=== PATIENT | female | born 1955 | race Caucasian/White ===

== ENCOUNTER 2017-02-20 21:36 | Emergency (ER) | payer BC, MEDICARE ==
[~2017-02-20] VITALS: Ht 175.2 cm; Wt 89.8 kg
[~2017-02-20 21:36] MED LIST: ASPIRIN81 M1 PO; ATIVAN1 MG PO; COREG12.5 MG PO; NAPROSYN375 MG PO; NORFLEX100 MG PO; OYSTER CAL 500500 MG PO; PROTONIX40 M1 PO; REQUIP1 MG PO; TRAMADOL50 MG PO; VICODIN ES 7501 TA1 PO; VICODIN ES 7501 TAB PO; ZOLOFT50 MG PO
[2017-02-20 22:30] LABS: BASO % 0.2 % (0.0-1.0); EOS % 0.1 % (1.0-4.0); HEMATOCRIT 45.2 % (37.0-47.0); HEMOGLOBIN 15.2 g/dl (12.0-16.0); IG # 0.1 10*3/uL (0.0-0.1); LYMPH # 0.7 10*3/uL (1.3-4.4); LYMPH % 5.4 % (27.0-41.0); MEAN CELL VOLUME 85.8 fl (81.0-99.0); MEAN CORPUSCULAR HGB 28.8 pg (27.0-31.0); MEAN CORPUSCULAR HGB CONC 33.6 g/dl (33.0-37.0); MEAN PLATELET VOLUME 10.4 fl (9.6-12.3); MONO # 1.1 10*3/uL (0.1-1.0); MONO % 7.9 % (3.0-9.0); NEUT # 11.8 10*3/uL (2.3-7.9); PLATELET COUNT AUTOMATED 156 10*3/uL (130-400); RED BLOOD COUNT 5.27 10*6/uL (4.10-5.10); RED CELL DISTRI WIDTH 14.1 % (0-14.5); WHITE BLOOD COUNT 13.7 10*3/uL (4.8-10.8)
[2017-02-20 22:47] LABS: BUN 10 mg/dl (7-24); CARBON DIOXIDE 23 mmol/L (21-32); CHLORIDE 101 mmol/L (98-107); EST GLOM FILT AFRICAN AMERICAN > 60 ml/min; GLUCOSE 114 mg/dL (65-99); POTASSIUM 3.5 mmol/L (3.5-5.1); SODIUM 136 mmol/L (136-145)
[2017-02-20 22:51] LABS: TROPONIN I < 0.015 ng/ml (<0.045)
[2017-02-20 23:08] LABS: BILIRUBIN NEGATIVE (NEGATIVE); BLOOD 2+ (NEGATIVE); CLARITY CLEAR (CLEAR); COLOR YELLOW (YELLOW); GLUCOSE NEGATIVE (NEGATIVE); KETONE TRACE (NEGATIVE); LEUKO ESTERASE 1+ (NEGATIVE); NITRITE NEGATIVE (NEGATIVE); PROTEIN TRACE (NEGATIVE); SPECIFIC GRAVITY <= 1.005 (1.005-1.030); UROBILINOGEN 0.2 E.U./dl (0.2-1.0)
[2017-02-20 23:14] LABS: URINE REFLEX COMMENT YES (NO)
[2017-02-20 23:15] LABS: BACTERIA 1+
== END 2017-02-20 23:38 | disposition home or self-care (01) ==
LOC: ED 21:36
PROVIDERS: Emergency Medicine
DX: B34.9 Viral infection, unspecified (principal); Z90.49 Acquired absence of other specified parts of digestive tract; Z79.82 Long term (current) use of aspirin; Z91.030 Bee allergy status; Z91.041 Radiographic dye allergy status; Z79.899 Other long term (current) drug therapy

== ENCOUNTER → 2017-05-19 | Outpatient (CLI) | payer BC ==
[2017-05-20 09:06] LABS: FOLLICLE STIMULATING HORMONE 52.9 mIU/mL (.); PROGESTERONE 004317 0.3 ng/mL (.)
== END | disposition home or self-care (01) ==
LOC: LAB 08:51
PROVIDERS: Family Medicine
DX: Z78.0 Asymptomatic menopausal state (principal)

== ENCOUNTER → 2017-08-06 | Outpatient (CLI) | payer BC | END | disposition home or self-care (01) | LOC: MAMMO 14:03 | DX: Z12.31 Encounter for screening mammogram for malignant neoplasm of breast (principal); N95.1 Menopausal and female climacteric states ==

== ENCOUNTER → 2017-08-25 | Outpatient (CLI) | payer BC | END | disposition home or self-care (01) | LOC: CARD 08-18 14:00 | DX: I51.7 Cardiomegaly (principal) ==

== ENCOUNTER → 2017-10-19 | Outpatient (CLI) | payer BC, MEDICARE ==
--- NOTE | ~2017-10-19 | HM ---
[place], [place] HOLTER MONITOR REPORT NAME: DAVID TROY UNIT #: [id number] ROOM: DOCTOR: SAMUEL CASTRO MD BIRTHDATE: [birth year] DOS: 10/22/2017 48-HOUR HOLTER MONITOR. The patient remained in sinus rhythm throughout the entire. Minimum heart rate is 50, average IS 75, maximum heart rate of 145. The patient is in sinus rhythm, isolated PVC. A 3-beat run of idioventricular rhythm is present. The patient also had a few runs of atrial tachycardia. Isolated PVCs were present and also had a brief episode of what appears to be atrial fibrillation. The fastest rate was 145 beats per minute. FINAL IMPRESSION: Abnormal Holter monitor with a few episodes of atrial fibrillation. The patient had a triplet also. No bradycardic episodes are present. The longest pause is 1.4 seconds. A few isolated PVCs are present. Short runs of atrial tachycardia and atrial fibrillation is present. The patient will be followed up. SAMUEL CASTRO MD CM:HOLTER:HOLTER MONITOR REPORT [id number] SAMUEL CASTRO MD
== END | disposition home or self-care (01) ==
LOC: CARD 08:28
DX: R55 Syncope and collapse (principal)

== ENCOUNTER → 2017-11-03 | Outpatient (CLI) | payer BC, MEDICARE ==
[~2017-11-03] MED LIST changes: +BIOTIN10000 MC1 PO; +CARAFATE1 GM PO; +EPIPEN 2-P0.3 MG/0.3 IJ; +HYDROCHLOROTH12.5 M3 PO; +LORATADINE10 M3 PO; +Motrin,Rufen800 MG PO; +TIZANIDINE HCL4 M1 PO; +TURMERIC CURCUMIN PO; +VIT D PO
--- NOTE | ~2017-11-03 | ST ---
[place], [place] EXERCISE STRESS TEST REPORT NAME: DAVID TROY UNIT #: [id number] ROOM: DOCTOR: SAMUEL CASTRO MD BIRTHDATE: [birth year] DOS: 11/03/2017 LEXISCAN PORTION OF THE LEXISCAN CARDIOLITE. Baseline cardiogram, normal sinus rhythm with nonspecific ST-T changes, 0.4 mg Lexiscan, duration of 10 seconds. With Lexiscan, no new EKG changes. The patient had no chest discomfort. Blood pressure and heart rate response was normal. FINAL IMPRESSION: No EKG changes with Lexiscan. No chest pain with Lexiscan. No dysrhythmia with Lexiscan. Blood pressure and heart rate response was normal. Nuclear images will be reported separately. SAMUEL CASTRO MD CM:STRESS:EXERCISE STRESS TEST REPORT [id number] SAMUEL CASTRO MD
== END | disposition home or self-care (01) ==
LOC: CARD 03:43
DX: I73.9 Peripheral vascular disease, unspecified (principal); I48.0 Paroxysmal atrial fibrillation; I11.9 Hypertensive heart disease without heart failure; F17.200 Nicotine dependence, unspecified, uncomplicated

== ENCOUNTER → 2018-02-16 | Outpatient (CLI) | payer BC | END | disposition home or self-care (01) | LOC: CARD 14:00 | DX: I48.0 Paroxysmal atrial fibrillation (principal) ==

== ENCOUNTER → 2018-03-15 | Outpatient (CLI) | payer BC | END | disposition home or self-care (01) | LOC: RAD 11:11 | DX: M54.5 Low back pain (principal) ==

== ENCOUNTER → 2019-06-28 | Outpatient (CLI) | payer OTHER, MEDICARE | END | disposition home or self-care (01) | LOC: RESCLI 00:16 | DX: I12.9 Hypertensive chronic kidney disease with stage 1 through stage 4 chronic kidney disease, or unspecified chronic kidney disease (principal); E11.22 Type 2 diabetes mellitus with diabetic chronic kidney disease; N18.3 Chronic kidney disease, stage 3 (moderate); M54.16 Radiculopathy, lumbar region; G89.29 Other chronic pain; F41.1 Generalized anxiety disorder; M51.26 Other intervertebral disc displacement, lumbar region; M17.9 Osteoarthritis of knee, unspecified; E55.9 Vitamin D deficiency, unspecified; E78.5 Hyperlipidemia, unspecified; K21.9 Gastro-esophageal reflux disease without esophagitis; G47.33 Obstructive sleep apnea (adult) (pediatric); G25.81 Restless legs syndrome; F39 Unspecified mood [affective] disorder; I25.10 Atherosclerotic heart disease of native coronary artery without angina pectoris; D64.9 Anemia, unspecified; Z91.09 Other allergy status, other than to drugs and biological substances; Z95.5 Presence of coronary angioplasty implant and graft; Z79.899 Other long term (current) drug therapy ==

== ENCOUNTER → 2019-08-09 | Outpatient (CLI) | payer OTHER | END | disposition home or self-care (01) | LOC: US 13:20 | DX: Z12.39 Encounter for other screening for malignant neoplasm of breast (principal); E01.0 Iodine-deficiency related diffuse (endemic) goiter; N64.59 Other signs and symptoms in breast ==

== ENCOUNTER → 2020-02-21 | Outpatient (CLI) | payer OTHER | END | disposition home or self-care (01) | LOC: RAD 12:18 | DX: Z01.818 Encounter for other preprocedural examination (principal); M17.11 Unilateral primary osteoarthritis, right knee ==

== ENCOUNTER → 2020-04-11 | Outpatient (CLI) | payer OTHER | END | disposition home or self-care (01) | LOC: RESCLI 01:11 | PROVIDERS: ATTEND Internal Medicine Nephrology | DX: M54.16 Radiculopathy, lumbar region (principal); E78.5 Hyperlipidemia, unspecified; I25.10 Atherosclerotic heart disease of native coronary artery without angina pectoris; G25.81 Restless legs syndrome; M51.26 Other intervertebral disc displacement, lumbar region; D64.9 Anemia, unspecified; K21.9 Gastro-esophageal reflux disease without esophagitis; I12.9 Hypertensive chronic kidney disease with stage 1 through stage 4 chronic kidney disease, or unspecified chronic kidney disease; E11.22 Type 2 diabetes mellitus with diabetic chronic kidney disease; N18.9 Chronic kidney disease, unspecified; E55.9 Vitamin D deficiency, unspecified; M17.11 Unilateral primary osteoarthritis, right knee; J44.9 Chronic obstructive pulmonary disease, unspecified; M79.89 Other specified soft tissue disorders; Z91.09 Other allergy status, other than to drugs and biological substances; Z79.899 Other long term (current) drug therapy; Z98.890 Other specified postprocedural states; Z95.828 Presence of other vascular implants and grafts; Z87.891 Personal history of nicotine dependence; Z91.030 Bee allergy status; Z91.041 Radiographic dye allergy status ==

== ENCOUNTER → 2020-06-20 | Outpatient (CLI) | payer OTHER ==
[~2020-06-20] MED LIST changes: -COREG12.5 MG PO; +COREG25 MG PO; +LASIX20 MG PO; +NEURONTIN300 MG PO; +ONDANSETRON4 MG SL; +ONGLYZA2.5 MG PO; +OYSTER SHELL C1 EAC3 PO; +PROVENTIL HFA6.7 GM INH; +SPIRIVA18 MCG PO; +VICO75300 PO
== END | disposition home or self-care (01) ==
LOC: RESCLI 05:10
PROVIDERS: ATTEND Internal Medicine Nephrology
DX: M51.26 Other intervertebral disc displacement, lumbar region (principal); E78.5 Hyperlipidemia, unspecified; M17.11 Unilateral primary osteoarthritis, right knee; I25.10 Atherosclerotic heart disease of native coronary artery without angina pectoris; G25.81 Restless legs syndrome; K21.9 Gastro-esophageal reflux disease without esophagitis; D64.9 Anemia, unspecified; F41.1 Generalized anxiety disorder; E55.9 Vitamin D deficiency, unspecified; E11.22 Type 2 diabetes mellitus with diabetic chronic kidney disease; J44.9 Chronic obstructive pulmonary disease, unspecified; M79.89 Other specified soft tissue disorders; G62.9 Polyneuropathy, unspecified; I10 Essential (primary) hypertension; R11.0 Nausea

== ENCOUNTER 2020-07-18 18:03 | Inpatient (IN) | payer OTHER ==
[~2020-07-18] VITALS: Ht 175.2 cm; Wt 129.0 kg
[~2020-07-18 18:03] MED LIST changes: -LASIX20 MG PO; -NEURONTIN300 MG PO; -ONDANSETRON4 MG SL; -ONGLYZA2.5 MG PO; -OYSTER SHELL C1 EAC3 PO; -PROVENTIL HFA6.7 GM INH; -SPIRIVA18 MCG PO; -VICO75300 PO
[2020-07-18 18:16] VITALS: BP 144/85
[2020-07-18 18:45] LABS: BASO % 0.2 % (0.0-1.0); HEMATOCRIT 41.6 % (37.0-47.0); LYMPH # 0.6 10*3/uL (1.3-4.4); LYMPH % 10.1 % (27.0-41.0); MEAN CELL VOLUME 75.8 fl (81.0-99.0); MEAN CORPUSCULAR HGB 22.6 pg (27.0-31.0); MEAN CORPUSCULAR HGB CONC 29.8 g/dl (33.0-37.0); MONO # 0.4 10*3/uL (0.1-1.0); MONO % 6.5 % (3.0-9.0); NEUT # 4.8 10*3/uL (2.3-7.9); NEUT % 81.8 % (47.0-73.0); PLATELET COUNT AUTOMATED 205 10*3/uL (130-400); RED BLOOD COUNT 5.49 10*6/uL (4.10-5.10); RED CELL DISTRI WIDTH 18.1 % (0-14.5); WHITE BLOOD COUNT 5.9 10*3/uL (4.8-10.8)
[2020-07-18 18:49] LABS: ACT PARTIAL THROMBO TIME 30.2 SECONDS (20.0-32.1); INTERNATIONAL NORM RATIO 1.1 (2.0-3.5)
--- NOTE | 2020-07-18 18:49 | NUR ---
PATIENT DENIES WOUNDS. A&OX4.
[2020-07-18 18:54] LABS: ALBUMIN 2.9 gm/dl (3.1-4.5); CREATININE 1.85 mg/dL (0.55-1.02); POTASSIUM 4.2 mmol/L (3.5-5.1); TOTAL PROTEIN 6.6 gm/dL (6.4-8.2)
[2020-07-18 18:57] LABS: TROPONIN I 0.185 ng/ml (<0.045)
--- NOTE | 2020-07-18 19:12 | NUR ---
REPORT FROM CAROLE ROMAN AT THIS TIME
[2020-07-18 19:30] VITALS: BP 146/66
--- NOTE | 2020-07-18 19:45 | NUR ---
PATIENT GIVES VERBAL CONSENT TO DISCUSS CARE WITH DAUGHTER IN LAW, FREDY WELL HER SISTER, BERHANE WILLARD, IF SHE WERE TO CALL IN.
[2020-07-18 20:00] VITALS: BP 149/68
[2020-07-18 20:10] LABS: ABG BASE EXCESS -2.8 mmol/L (-2.0-2.0); ARTERIAL BLOOD GAS PH 7.403 (7.35-7.45)
[2020-07-18 21:30] VITALS: BP 158/86
--- NOTE | 2020-07-18 22:10 | NUR ---
PATIENT PLACE ON BIPAP / AT 70%. HR 78 SPO2 96% ALARMS ON AND FUNCTIONAL. WILL CONTINUE TO MONITOR PATIENT.
[2020-07-19] VITALS (18 sets, daily range): BP systolic 122–187; BP diastolic 75–108
--- NOTE | 2020-07-19 00:47 | NUR ---
PT COMPLAINING OF NAUSEA. PROVIDED ZOFRAN.
[2020-07-19 03:30] LABS: BASO % 0.1 % (0.0-1.0); HEMATOCRIT 44.7 % (37.0-47.0); LYMPH # 0.6 10*3/uL (1.3-4.4); LYMPH % 5.8 % (27.0-41.0); MEAN CORPUSCULAR HGB 22.5 pg (27.0-31.0); MEAN CORPUSCULAR HGB CONC 30.4 g/dl (33.0-37.0); MEAN PLATELET VOLUME 9.6 fl (9.6-12.3); MONO # 0.4 10*3/uL (0.1-1.0); MONO % 4.1 % (3.0-9.0); NEUT # 8.8 10*3/uL (2.3-7.9); NEUT % 89.2 % (47.0-73.0); PLATELET COUNT AUTOMATED 220 10*3/uL (130-400); RED BLOOD COUNT 6.04 10*6/uL (4.10-5.10); RED CELL DISTRI WIDTH 18.6 % (0-14.5); WHITE BLOOD COUNT 9.9 10*3/uL (4.8-10.8)
--- NOTE | 2020-07-19 03:38 | NUR ---
PULSE OX 89% ON 70% PT BUMPED UP TO 80% NOW 94 ON BIPAP
--- NOTE | 2020-07-19 03:38 | NUR ---
FIO2 INCREASED TO 80%. PATIENT REMAINS ON BIPAP AT 12/6. SPO2 925 HR 87.
[2020-07-19 03:46] LABS: ALBUMIN 3.3 gm/dl (3.1-4.5); CREATININE 1.67 mg/dL (0.55-1.02); POTASSIUM 3.4 mmol/L (3.5-5.1); TOTAL PROTEIN 7.2 gm/dL (6.4-8.2)
[2020-07-19 03:47] LABS: FREE T4 1.25 ng/dl (0.76-1.46)
[2020-07-19 03:52] LABS: THYROID STIM HORMONE (HS) 2.87 uIU/ml (0.358-4.75)
--- NOTE | 2020-07-19 05:15 | NUR ---
PT IS RESTLESS AND HAS NOT BEEN ABLE TO SLEEP ALL NIGHT. DR. SEPULVEDA MADE AWARE HE IS GOING TO ORDER ATIVAN.
--- NOTE | 2020-07-19 05:50 | NUR ---
IPAP INCREASED 14 EPAP 10 FIO2 90% SPO2 90% HR 83
--- NOTE | 2020-07-19 06:01 | NUR ---
DR. SEPULVEDA MADE AWARE OF PATIENTS BIPAP CHANGES AND PULSE OX. WE ARE GOING TO GET AN ABG.
[2020-07-19 06:26] LABS: ABG BASE EXCESS -1.7 mmol/L (-2.0-2.0); ARTERIAL BLOOD GAS PH 7.361 (7.35-7.45)
--- NOTE | 2020-07-19 08:45 | NUR ---
CALLED RESIDENT AND SPOKE TO HIM FOR DR TROTTER AND LET HIM KNOW THAT PATIENT APPEARS TO BE IN A FIB WITH RVR ON EARLY HEAD START DIRECTOR. STATES THEY WILL LOOK AT THIS.
--- NOTE | 2020-07-19 09:04 | NUR ---
ECHO COMPLETED BEDSIDE ER HOLDING.
--- NOTE | 2020-07-19 10:54 | NUR ---
DR GALLEGO CALLED WITH CONSULT. HE STATED HE WOULD BE DOWN TO SEE THE PATIENT. CONSULT CALLED TO DR CASTRO. HE STATED TO BOLUS PATIENT WITH 10MG CARDIZEM AND INCREASE DRIP TO 15.
--- NOTE | 2020-07-19 11:17 | NUR ---
PATIENT TO BE PREPARED FOR INTUBATION PER VERBAL ORDER OF DR GALLEGO. MÓNICA ROMAN CALLED DR ARZOLA. DR GALLEGO STATES THAT HE WANTS ANESTHESIA TO INTUBATE HER.
--- NOTE | 2020-07-19 12:10 | NUR ---
PATIENT INTUBATED WITH A 7.5 ET TUBE AND IS 23CM AT THE LIP. PLACED ONTO MECHANICAL VENTILATOR AT AC-16 VT-500 O2-100% PEEP-18. PATIENT INTUBATED BY DOUGLAS PELAYO AND VENT SETTINGS GIVEN TO RESP BY HIM WELL.
--- NOTE | 2020-07-19 12:10 | NUR ---
PT INTUBATED BY ANESTHESIA DOUGLAS. RT ISSAC AND ADELAIDE PRESENT. PLACED ON VENT 16/500/14/100%. SAO2 55%. STAT CHEST XRAY ORDERED AND SAO2 RISING SLOWLY.
--- NOTE | 2020-07-19 12:36 | NUR ---
DOUGLAS PELAYO PLACING CENTRAL LINE AT THIS TIME ON PATIENT. THIS NURSE IN ROOM.
--- NOTE | 2020-07-19 12:53 | NUR ---
OCTAVIA PELAYO PLACING ARTERIAL LINE AT THIS TIME.
[2020-07-19 13:24] LABS: ARTERIAL BLOOD GAS PH 7.163 (7.35-7.45)
--- NOTE | 2020-07-19 14:00 | NUR ---
PT PRONED ORDERED. TOLERATING WELL.
--- NOTE | 2020-07-19 14:35 | NUR ---
DOUGLAS PELAYO GAVE IV PUSH OF NIMBEX FOR TRANSPORT OF PATIENT TO ICCU. PATIENT TAKEN TO ICCU BY THIS NURSE DOUGLAS PELAYO, TESHA IN RESP DEPARTMENT.
--- NOTE | 2020-07-19 15:00 | NUR ---
BEDSIDE REPORT GIVEN TO VICENTA ROMAN AT THIS TIME FOR PATIENT.
--- NOTE | 2020-07-19 15:00 | NUR ---
A 65, admitted to ICCU, under the services of JACLYN Flores DO with a diagnosis of RESP FAILURE/ POI FOR COVID. Chief complaint is SOB & LIPS CYANOTIC. Patient arrived via stretcher from ER. Monitor applied. Initial assessment completed. Vital signs taken and recorded. JACLYN FLORES DO notified of admission to the unit. Orders received. See assessment for past medical history, medications and allergies. Patient and/or family oriented to unit. [facility] visitation policy reviewed. Clothing/patient valuable form completed. PATIENT ARRIVED VIA CART FROM ER INTUBATED WITH ARTLINE, RIJ-MLC INTACT. DIPRIVAN, CARDIZEM, & HEPARIN INFUSING KATLIN ZUNIGA
--- NOTE | 2020-07-19 16:20 | NUR ---
ANESTHESIA HERE TO HELP PRONE PATIENT. PRONED ORDERED BY DR GALLEGO. REMAINS ON NIMBEX AND DIPROVAN ORDERED. TOLEREATING WELL. VICENTA VARGHESE RN
[2020-07-19 16:39] LABS: ABG BASE EXCESS -3.1 mmol/L (-2.0-2.0)
[2020-07-19 16:42] LABS: ARTERIAL BLOOD GAS PH 7.16 (7.35-7.45)
[2020-07-19] MEDS ORDERED: NEURONTIN300 MG PO (16:55)
[2020-07-19] MEDS ORDERED: VICO75300 PO (17:34)
[2020-07-19] MEDS ORDERED: ONDANSETRON4 MG SL (17:49)
[2020-07-19] MEDS ORDERED: ONGLYZA2.5 MG PO (17:51)
[2020-07-19] MEDS ORDERED: OYSTER SHELL C1 EAC3 PO (17:54)
[2020-07-19] MEDS ORDERED: LASIX20 MG PO (17:59)
[2020-07-19] MEDS ORDERED: SPIRIVA18 MCG PO (18:01)
[2020-07-19] MEDS ORDERED: PROVENTIL HFA6.7 GM INH (18:01)
[2020-07-20] VITALS (12 sets, daily range): BP systolic 121–186; BP diastolic 77–98
--- NOTE | 2020-07-20 05:54 | NUR ---
Patient tolerated prone position throughout the night. Patient being swam every 2hrs. No signs of distress. Vital signs stable. Monitoring.
[2020-07-20 06:12] LABS: BASO % 0.1 % (0.0-1.0); HEMATOCRIT 49.3 % (37.0-47.0); LYMPH # 0.6 10*3/uL (1.3-4.4); LYMPH % 6.9 % (27.0-41.0); MEAN CORPUSCULAR HGB 22.3 pg (27.0-31.0); MEAN PLATELET VOLUME 10.3 fl (9.6-12.3); MONO # 0.3 10*3/uL (0.1-1.0); MONO % 3.5 % (3.0-9.0); NEUT % 88.6 % (47.0-73.0); NUCLEATED RED BLOOD CELL 0.3 % (0.0-0.0); PLATELET COUNT AUTOMATED 261 10*3/uL (130-400); WHITE BLOOD COUNT 7.9 10*3/uL (4.8-10.8)
[2020-07-20 06:15] LABS: ALBUMIN 2.6 gm/dl (3.1-4.5); CREATININE 1.96 mg/dL (0.55-1.02); POTASSIUM 3.4 mmol/L (3.5-5.1)
--- NOTE | 2020-07-20 08:13 | NUR ---
PHYSICAL THERAPY Screen received pt admitted with CHF and acute respiratory failure pt was intubated on 07/19. Please consult PT if/when pt medically appropriate thank you Aileen Monae PT
--- NOTE | 2020-07-20 08:14 | NUR ---
Nursing screen received and chart reviewed. Patient admitted for CHF and acute respiratory failure. Patient was intubated on 07/19/2020. Please consult OT if/when medically appropriate for an OT eval. Thank you. Jennie Wyatt OTR/L
[2020-07-20 08:29] LABS: ABG BASE EXCESS 0.2 mmol/L (-2.0-2.0); ARTERIAL BLOOD GAS PH 7.261 (7.35-7.45)
--- NOTE | 2020-07-20 09:00 | NUR ---
Patient is currently intubated. CM will continue to follow for any discharge planning needs.
--- NOTE | 2020-07-20 09:20 | NUR ---
LABATOL 10MG IV GIVEN FOR BP 220/110. VICENTA VARGHESERN
--- NOTE | 2020-07-20 10:38 | NUR ---
SPEECH THERAPY Nursing screen received and chart review complete. Patient admitted for CHF and acute respiratory failure. Patient was intubated on 07/19/2020. Please contact if/when medically appropriate for speech evaluation. Thank you. Priyanka Allen MA [facility]
[2020-07-20 14:48] LABS: ARTERIAL BLOOD GAS PH 7.19 (7.35-7.45)
[2020-07-20 17:31] LABS: ABG BASE EXCESS -3.1 mmol/L (-2.0-2.0); ARTERIAL BLOOD GAS PH 7.209 (7.35-7.45)
--- NOTE | 2020-07-20 19:10 | NUR ---
DR GALLEGO CALLED IN. ORDERS RECEIVED TO ADVANCE ET TUBE 1.5CM. THEN PRONE PATIENT. ANESTHESIA NOTIFIED ALONG WITH RESPIRATORY. VICENTA VARGHESE RN
--- NOTE | 2020-07-20 19:15 | NUR ---
PATIENT UNPRONED WITH HELP BY ANESTHESIA. PATIENT TOLERATED WELL. POSTIONED SUPINE. ARTERIAL LINE PATIENT AND CALIBRATED. GOOD WAVE FORM. ET REMAIN SECURE. DIPROVAN AND NIMBEX INFUSING. VICENTA VARGHESE RN
--- NOTE | 2020-07-20 20:00 | NUR ---
Patient put in prone position. Patient tolerated well. Will be proned for 16hrs. Estimated time to be unproned will be 12pm 07/21/20.
--- NOTE | 2020-07-20 20:13 | NUR ---
PT PRONED. GAS IN 2 HOURS
--- NOTE | 2020-07-20 20:14 | NUR ---
Patients blood pressure reading 200/100 per artline, after being prone. Lopressor 25 was given early. Will reassess.
--- NOTE | 2020-07-20 21:40 | NUR ---
Patient blood pressure remains 180/100, contacted Dr. Welch and received new order for 50 lopressor now. Will give and reassess.
[2020-07-20 22:25] LABS: ABG BASE EXCESS -1.3 mmol/L (-2.0-2.0); ARTERIAL BLOOD GAS PH 7.257 (7.35-7.45)
[2020-07-21] VITALS (14 sets, daily range): BP systolic 140–210; BP diastolic 77–109
--- NOTE | 2020-07-21 | NUR ---
Patients blood pressure has lowered to 150's/80's after 50mg of lopressor.
--- NOTE | 2020-07-21 01:00 | NUR ---
24 HR chart check completed.
--- NOTE | 2020-07-21 02:42 | NUR ---
Patients blood pressure now, 158/80. Monitoring.
--- NOTE | 2020-07-21 03:11 | NUR ---
Patients blood pressure climbing again, 180/80's, patient does have a history of chronic pain. Morphine was given. Will monitor and reassess.
--- NOTE | 2020-07-21 03:32 | NUR ---
Patients blood pressure now at 148/86. No distress noted. Morphine effective.
--- NOTE | 2020-07-21 03:44 | NUR ---
Tylenol given for a temp of 101.1. Will monitor and reassess.
--- NOTE | 2020-07-21 04:44 | NUR ---
Patient temp is now 100.6 after tylenol.
[2020-07-21 06:08] LABS: BASO % 0.2 % (0.0-1.0); HEMATOCRIT 49.9 % (37.0-47.0); LYMPH # 0.4 10*3/uL (1.3-4.4); LYMPH % 7.8 % (27.0-41.0); MEAN CELL VOLUME 78.3 fl (81.0-99.0); MEAN CORPUSCULAR HGB 22.4 pg (27.0-31.0); MEAN CORPUSCULAR HGB CONC 28.7 g/dl (33.0-37.0); MEAN PLATELET VOLUME 9.6 fl (9.6-12.3); MONO # 0.4 10*3/uL (0.1-1.0); MONO % 6.9 % (3.0-9.0); NEUT # 4.5 10*3/uL (2.3-7.9); NEUT % 83.8 % (47.0-73.0); NUCLEATED RED BLOOD CELL 0.4 % (0.0-0.0); PLATELET COUNT AUTOMATED 308 10*3/uL (130-400); RED BLOOD COUNT 6.37 10*6/uL (4.10-5.10); RED CELL DISTRI WIDTH 19.4 % (0-14.5); WHITE BLOOD COUNT 5.4 10*3/uL (4.8-10.8)
[2020-07-21 06:20] LABS: ACT PARTIAL THROMBO TIME 40.9 SECONDS (20.0-32.1)
[2020-07-21 06:28] LABS: ALBUMIN 2.6 gm/dl (3.1-4.5); CREATININE 2.44 mg/dL (0.55-1.02); TOTAL PROTEIN 7.1 gm/dL (6.4-8.2)
--- NOTE | 2020-07-21 07:42 | NUR ---
Shift chart check completed.24 HR chart check completed.
[2020-07-21 08:53] LABS: ABG BASE EXCESS 1.7 mmol/L (-2.0-2.0); ARTERIAL BLOOD GAS PH 7.295 (7.35-7.45)
--- NOTE | 2020-07-21 08:54 | NUR ---
TYLENOL SUPPOSITORY FOR PERSISTENT TEMP >102.
--- NOTE | 2020-07-21 09:54 | NUR ---
NO CHANGE IN TEMP SINCE TYLENOL SUPPOSITORY.
--- NOTE | 2020-07-21 10:52 | NUR ---
ON ASSESSMENT PATIENT REMAINS PRONED. NIMBEX AT 2MCG/KG/MIN AND PROPOFOL WAS AT 30MCG/KG/MIN BUT INCREASED TO 40MCG/KG/MIN DUE TO PERSISTENT HYPERTENSION. HER AM MEDS GIVEN VIA OGT. GLUCERNA AT 10ML/HR. JAVED PATENT CLEAR YELLOW URINE. SOFT RESTRAINTS IN PLACE WITHOUT IMPAIRED CIRCULATION. SEE ALL APPROPRIATE INTERVENTIONS.
--- NOTE | 2020-07-21 12:56 | NUR ---
PTT 49.8. NO CHANGE IN HEPARIN INFUSION RATE. IT'S CURRENTLY RUNNING AT 1195UNITS/HR WHICH IS 9.3UNITS/KG. ANESTHESIA IS COMING TO UNPRONE PATIENT.
--- NOTE | 2020-07-21 13:19 | NUR ---
NEW CONSULT CALLED TO CHAITANYA.
--- NOTE | 2020-07-21 15:04 | NUR ---
PT WAS UNPRONED AT 1400 WITH ASSIST OF ANESTHESIA. LEFT EYE PUFFY BUT NO OPEN WOUNDS FOUND.
[2020-07-21 16:18] LABS: ABG BASE EXCESS 0.8 mmol/L (-2.0-2.0); ARTERIAL BLOOD GAS PH 7.312 (7.35-7.45)
--- NOTE | 2020-07-21 16:34 | NUR ---
SALINA ALBA AND JULIÁN HAVE ROUNDED TODAY. EMERY HENAO FROM [facility] HAS VISITED. AT 1519 PT WAS PREMEDICATED WITH 650MG TYLENOL VIA NGT, 25MG IV BENADRYL AND 40MG IV SOLUMEDROL. AT 1544 TOCILIZUMAB UP TO INFUSE OVER ONE HOUR. CXR HAS BEEN DONE. ABG'S 2HRS POST UN-PRONING HAVE BEEN DRAWN. PROPOFOL CONTINUES AT 40MCG/KG/MIN, NIMBEX AT 2MCG/KG, AND HEPARIN AT 9.3UNITS/KG. PT REPOSITIONED FOR COMFORT. SEE ALL APPROPRIATE INTERVENTIONS.
--- NOTE | 2020-07-21 17:00 | NUR ---
NO CHANGE IN TEMP FROM EALIER TYLENOL VIA NGT THAT WAS GIVEN PREMED FOR TOCILIZUMAB.
--- NOTE | 2020-07-21 17:45 | NUR ---
FIO2 DECREASED TO 50%, ABG IN 2 HOURS.
--- NOTE | 2020-07-21 17:56 | NUR ---
DR GALLEGO HAS BEEN NOTIFIED OF ABG RESULTS TWO HOURS AFTER UN-PRONING. HER FIO2 HAS BEEN DECREASED TO 50% WITH REPEAT ABG'S TO BE DONE AT 1930. PT REPOSITIONED.
[2020-07-21 19:36] LABS: ABG BASE EXCESS 1.6 mmol/L (-2.0-2.0); ARTERIAL BLOOD GAS PH 7.284 (7.35-7.45)
--- NOTE | 2020-07-21 20:00 | NUR ---
PT RESTING IN BED WITH EYES CLOSED. ENDOTUBE PATENT, TIES SECURE, VENT SETTINGS VERIFIED AND FUNCTIONING WITHOUT DIFFICULTY. OGT PATENT, PLACEMENT VERIFIED VIA AIR BOLUS AND TF PASCALE WELL. MEDICATED WITH TYLENOL PER PRN ORDER FOR T 103.2(R). RIGHT IJ MLC PATENT, DRESSING DRY AND INTACT. HEPLOCKS PATENT. IVF'S INFUSING ORDERED WITHOUT DIFFICULTY. JAVED PATENT FOR DARK BILLIE URINE. DR ANDINO NOTIFIED OF TEMP AND NEW ORDER FOR COOLING BLANKET GIVEN. ISOLATION PRECAUTIONS MAINTAINED.
--- NOTE | 2020-07-21 22:04 | NUR ---
DR GALLEGO CALLED WITH ABG RESULTS, ORDER GIVEN TO DECREASE FIO2 TO 45% WITH ABGS TO FOLLOW IN THE AM.
--- NOTE | 2020-07-21 22:30 | NUR ---
TYLENOL AND COOLING BLANKET EFFECTIVE FOR TEMP.
[2020-07-22] VITALS (21 sets, daily range): BP systolic 101–233; BP diastolic 68–126
--- NOTE | 2020-07-22 05:15 | NUR ---
MEDICATED WITH TYLENOL PER PRN ORDER FOR INCREASING TEMP 99.3.
[2020-07-22 06:06] LABS: LYMPH # 0.3 10*3/uL (1.3-4.4); LYMPH % 11.1 % (27.0-41.0); MEAN CELL VOLUME 78.7 fl (81.0-99.0); MEAN CORPUSCULAR HGB 22.6 pg (27.0-31.0); MEAN CORPUSCULAR HGB CONC 28.8 g/dl (33.0-37.0); MEAN PLATELET VOLUME 9.8 fl (9.6-12.3); MONO # 0.4 10*3/uL (0.1-1.0); MONO % 11.7 % (3.0-9.0); NEUT # 2.3 10*3/uL (2.3-7.9); NEUT % 75.9 % (47.0-73.0); NUCLEATED RED BLOOD CELL 0.7 % (0.0-0.0); PLATELET COUNT AUTOMATED 328 10*3/uL (130-400); RED CELL DISTRI WIDTH 19.1 % (0-14.5)
[2020-07-22 06:22] LABS: ALBUMIN 2.5 gm/dl (3.1-4.5); CREATININE 2.33 mg/dL (0.55-1.02); TOTAL PROTEIN 6.6 gm/dL (6.4-8.2)
--- NOTE | 2020-07-22 07:06 | NUR ---
Shift chart check completed.24 HR chart check completed.
[2020-07-22 09:08] LABS: ABG BASE EXCESS 1.6 mmol/L (-2.0-2.0); ARTERIAL BLOOD GAS PH 7.322 (7.35-7.45)
--- NOTE | 2020-07-22 11:05 | NUR ---
AT 1000 SEDATION VACATION BEGAN. PT REPOSITIONED TO HER RIGHT SIDE. WITHIN MINUTES OF SEDATION VACATION HER MONITOR SHOWED ATRIAL FIB VR >200. DR ALBA PRESENT IN ROOM. IV CARDIZEM 10MG BOLUS GIVEN WITHOUT BREAKING. MORPHINE IV GIVEN PT ALSO HYPERTENSIVE. PROPOFOL AND NIMBEX RESTARTED WITHOUT BEING ABLE TO ASSESS LEVEL OF CONSCIOUSNESS. CARDIZEM DRIP WAS STARTED AT 10MG/HR AND TITRATED UP TO 15MG/HR. HR REMAIN 170'S. HAS CALLED IN AND UPDATED ON THE EVENTS OF THIS MORNING.
--- NOTE | 2020-07-22 14:17 | NUR ---
AT 1130 AMIODARONE PROTOCOL STARTED WITH LOADING DOSE AND STARTED AT 1MG/MIN. CARDIZEM CONTINUES AT 15MG/HR. DR PACE (COVERING FOR DR CASTRO) NOTIFIED OF THE EVENTS OF THE MORNING. ORDERS RECEIVED. DR ALBA NOTIFIED OF HIS RECOMMENDATIONS.
[2020-07-22 15:26] LABS: ABG BASE EXCESS 0.7 mmol/L (-2.0-2.0); ARTERIAL BLOOD GAS PH 7.28 (7.35-7.45)
--- NOTE | 2020-07-22 15:32 | NUR ---
4 DOSES OF IV LOPRESSOR WERE GIVEN Q5M X 4. THE 4TH DOSE SLOWED PT TO <120. MONITOR SHOWING ATRIAL FLUTTER-FIB. CARDIZEM DRIP CONTINUES AT 15MG/HR. BP STAYED >100 SYSTOLIC AT ALL TIMES. TYLENOL SUPPOSITORY FOR TEMP 103.1. SHE'S ON COOLING BLANKET BUT THE BLANKET DOESN'T FEEL VERY COOL. ICE BAGS TO BILATERAL GROINS AND CHEST. [facility] DRESSING CHANGED.
--- NOTE | 2020-07-22 16:28 | NUR ---
DR ALBA UPDATED ON PT'S VS AND CURRENT DRIPS/INFUSION RATES.
--- NOTE | 2020-07-22 17:48 | NUR ---
DR GALLEGO NOTIFIED OF LATEST ABG'S. FIO2 HAS BEEN TITRATED TO 40%. AMIODARONE DECREASED TO 0.5MG/MIN PER POLICY. CARDIZEM CONTINUES AT 15MG/HR. EMERY MOROCHO HAS BEEN IN TO VISIT. PT TO RECEIVE REMDESIVIR.
--- NOTE | 2020-07-22 19:32 | NUR ---
DR GALLEGO CALLED AND ORDER TO ADVANCE ET TUBE 2CM. RESP HERE AND NOTIFIED.
--- NOTE | 2020-07-22 20:00 | NUR ---
Tube advanced from 25cm to 27cm at the lip per
--- NOTE | 2020-07-22 20:00 | NUR ---
PT RESTING IN BED WITH EYES CLOSE. ENDOTUBE PATENT, TIES SECURE, VENT SETTINGS VERIFIED AND FUNCTIONING WITHOUT DIFFICULTY. RIGHT IJ MLC AND LEFT ART LINE PATENT, DRESSINGS DRY AND INTACT. JAVED PATENT FOR DARK BILLIE URINE. NGT PATENT AND PLACMENT VERIFIED VIA AIR BOLUS. TF PASCALE WELL. IVF'S INFUSING ORDERED WITHOUT DIFFICULTY. NO S/S OF HYPO/HYPERGLYCEMIA NOTED. ISOLATION PRECAUTIONS MAINTAINED.
[2020-07-22 20:27] LABS: ABG BASE EXCESS 0.3 mmol/L (-2.0-2.0); ARTERIAL BLOOD GAS PH 7.33 (7.35-7.45)
--- NOTE | 2020-07-22 20:43 | NUR ---
MEDICATED WITH TYLENOL PER PRN ORDER FOR TEMP.
--- NOTE | 2020-07-22 20:45 | NUR ---
Kenroy called with recent ABG results. No changes. ABG in the AM.
--- NOTE | 2020-07-22 23:55 | NUR ---
PT HR CONTINUES IN THE 130-150'S. DR PACE NOTIFIED AND NEW ORDERS FOR LOPRESSOR 5MG IV X1 NOW AND REPEAT DOSE IN 10 MINUTES. DIG 0.25 IV X1 NOW AND REPEAT DOSE IN 6 HOURS.
[2020-07-23] VITALS (25 sets, daily range): BP systolic 106–196; BP diastolic 60–117
--- NOTE | 2020-07-23 01:30 | NUR ---
PT HR STILL IN 140'S. DR PACE CALLED WITH NO ANSWER.
--- NOTE | 2020-07-23 03:45 | NUR ---
HR CONTINUES IN THE 140-150'S. DR PACE CALLED AGAIN AND NEW ORDER RECEIVED. GIVE LOPRESSOR 25MG VIA NGT TID. GIVE LOPRESSOR 5MG IV X4 DOSES 10 MINUTES APART. KEEP PT NPO FOR POSSIBLE CARDIOVERSION.
[2020-07-23 06:01] LABS: ALBUMIN 2.4 gm/dl (3.1-4.5); TOTAL PROTEIN 6.3 gm/dL (6.4-8.2)
[2020-07-23 06:02] LABS: POTASSIUM 4.2 mmol/L (3.5-5.1)
[2020-07-23 06:09] LABS: BASO % 0.2 % (0.0-1.0); HEMATOCRIT 47.9 % (37.0-47.0); LYMPH # 0.4 10*3/uL (1.3-4.4); LYMPH % 8.7 % (27.0-41.0); MEAN CELL VOLUME 78.9 fl (81.0-99.0); MEAN CORPUSCULAR HGB 22.9 pg (27.0-31.0); MEAN PLATELET VOLUME 10.2 fl (9.6-12.3); MONO # 0.4 10*3/uL (0.1-1.0); MONO % 8.7 % (3.0-9.0); NEUT # 3.7 10*3/uL (2.3-7.9); NEUT % 81.3 % (47.0-73.0); PLATELET COUNT AUTOMATED 295 10*3/uL (130-400); RED BLOOD COUNT 6.07 10*6/uL (4.10-5.10); RED CELL DISTRI WIDTH 19.1 % (0-14.5); WHITE BLOOD COUNT 4.5 10*3/uL (4.8-10.8)
[2020-07-23 06:27] LABS: ACT PARTIAL THROMBO TIME 64.2 SECONDS (20.0-32.1)
--- NOTE | 2020-07-23 06:30 | NUR ---
DR CASTRO UPDATED ON PT STATUS. ORDER FOR CARDIZEM 10MG BOLUS AND CARDIZEM GTT AT 10MG/HR.
[2020-07-23 07:25] LABS: LDH 473 U/L (84-246); TRIGLYCERIDES 605 mg/dl (<150)
--- NOTE | 2020-07-23 07:30 | NUR ---
ONLY ONE DOSE OF LOPRESSOR OF THE 4 WAS GIVEN. HR IN THE 50'S.
[2020-07-23 07:47] LABS: ABG BASE EXCESS -0.4 mmol/L (-2.0-2.0); ARTERIAL BLOOD GAS PH 7.333 (7.35-7.45)
--- NOTE | 2020-07-23 09:00 | NUR ---
WOUND NURSE GREGORIA CALLED WITH NEW WOUNDS
--- NOTE | 2020-07-23 09:50 | NUR ---
DR CASTRO CALLED ABOUT EXTREMELY ELEVATED HR & BP AND ORDERS RECEIVED
--- NOTE | 2020-07-23 14:41 | NUR ---
SPOKE WITH DR CASTRO AGAIN ABOUT HR & BP - NEW ORDERS RECEVIED & GIVEN. CARDIZEM DRIP AT 15mg/hr PER REQUEST OF DR CASTRO. AMIODARONE DRIP AT 0.5.. HEPARIN DRIP AT 9.3 U/KG/HR.. NIMBEX AT 1MG .. KETAMINE AT 4..JAVED PATENT FOR STRAW URINE AFTER ALBUMIN & LASIX GIVEN..ARTLINE & RIJ-MLC REMAIN SECURE & [PATENT..OGT WITH TUBE FEEDING AT 30CC/HR
[2020-07-23 14:48] LABS: ARTERIAL BLOOD GAS PH 7.348 (7.35-7.45)
--- NOTE | 2020-07-23 15:28 | NUR ---
DR CABRERA SHOWN WOUND CARE RECOMMENDATIONS & ORDERS REQUESTED
[2020-07-23 18:05] LABS: ABG BASE EXCESS 2.2 mmol/L (-2.0-2.0); ARTERIAL BLOOD GAS PH 7.31 (7.35-7.45)
--- NOTE | 2020-07-23 18:21 | NUR ---
DR GALLEGO CALLED WITH ABG RESULTS - ORDERS FOR ABG IN 2 HOURS ON SAME SETTINGS
[2020-07-23 20:23] LABS: ABG BASE EXCESS 0.8 mmol/L (-2.0-2.0); ARTERIAL BLOOD GAS PH 7.296 (7.35-7.45)
--- NOTE | 2020-07-23 21:00 | NUR ---
called with repeat ABG results. No changes at this time. ABG in the AM.
--- NOTE | 2020-07-23 21:05 | NUR ---
Patients heart rate remains 150-160, and blood pressure 190/116. Lopressor iv 5mg given, morphine given. Will monitor and reassess.
--- NOTE | 2020-07-23 21:10 | NUR ---
Patients heart rate is down to 116-120, and blood pressure is 152/80. Monitoring.
[2020-07-24] VITALS (25 sets, daily range): BP systolic 138–192; BP diastolic 77–106
--- NOTE | 2020-07-24 00:30 | NUR ---
Patient has a temp of 102.8, tylenol given. Will monitor and reassess.
--- NOTE | 2020-07-24 02:23 | NUR ---
Patients heart rate in the 160's. Blood pressure 164/88. Lopressor given. Will monitor and reassess.
--- NOTE | 2020-07-24 02:52 | NUR ---
Patients heart rate 128-140. Temp remains elevated. Place on cooling blanket.
--- NOTE | 2020-07-24 03:40 | NUR ---
R Tylenol was given for a temp of 103.9, cooling blanket turned down. Will monitor.
--- NOTE | 2020-07-24 04:00 | NUR ---
Patients temp still increasing, another cooling blanket was placed. Attempted to place ice bags, but no ice available on the floor. Monitoring.
[2020-07-24 06:07] LABS: HEMATOCRIT 52.2 % (37.0-47.0); MEAN CELL VOLUME 79.6 fl (81.0-99.0); MEAN CORPUSCULAR HGB 22.7 pg (27.0-31.0); MEAN CORPUSCULAR HGB CONC 28.5 g/dl (33.0-37.0); MEAN PLATELET VOLUME 10.8 fl (9.6-12.3); NUCLEATED RED BLOOD CELL 0.4 % (0.0-0.0); PLATELET COUNT AUTOMATED 379 10*3/uL (130-400); RED BLOOD COUNT 6.56 10*6/uL (4.10-5.10); RED CELL DISTRI WIDTH 19.3 % (0-14.5); WHITE BLOOD COUNT 7.1 10*3/uL (4.8-10.8)
[2020-07-24 06:14] LABS: ALBUMIN 2.8 gm/dl (3.1-4.5)
[2020-07-24 06:19] LABS: CREATININE 2.07 mg/dL (0.55-1.02); TOTAL PROTEIN 6.3 gm/dL (6.4-8.2)
--- NOTE | 2020-07-24 06:45 | NUR ---
Patients temp 103.7 after 2nd cooling blanket placed.
[2020-07-24 07:07] LABS: POTASSIUM 5.3 mmol/L (3.5-5.1)
[2020-07-24 07:17] LABS: ATYPICAL LYMPHS 3 % (0-0); MICROCYTOSIS SLIGHT; PLATELET SUFFICIENCY NORMAL (NORMAL); POLYCHROMASIA SLIGHT; TOTAL CELLS COUNTED 100 #CELLS
--- NOTE | 2020-07-24 07:46 | NUR ---
Shift chart check completed.24 HR chart check completed.
--- NOTE | 2020-07-24 08:05 | NUR ---
OT NOTE Nursing screenr received and chart reviewed. Patient admitted with COVID-19 and acute respiratory failure with hypoxia. Patient was intubated on 07/19/2020. Please consult OT when patient is medically appropriate for an OT evaluation. Thank you. Jennie Wyatt, OTR/L
--- NOTE | 2020-07-24 08:30 | NUR ---
Patient is in COVID isolation precautions and intubated. CM will continue to follow for any discharge planning needs.
[2020-07-24 09:24] LABS: BILIRUBIN Negative (Negative); BLOOD Trace-Lysed (Negative); CLARITY Clear (Clear); COLOR Yellow (Yellow); GLUCOSE 3+ (Negative); KETONE Negative (Negative); LEUKO ESTERASE Negative (Negative); NITRITE Negative (Negative); UROBILINOGEN 0.2 E.U./dl (0.0-1.0)
[2020-07-24 09:40] LABS: ARTERIAL BLOOD GAS PH 7.274 (7.35-7.45)
[2020-07-24 10:27] LABS: BACTERIA 2+; RBC 16-20 rbc/hpf (0-2)
--- NOTE | 2020-07-24 11:10 | NUR ---
ON ASSESSMENT PT DEEPLY SEDATED ON KETAMINE AND NIMBEX. THESE WERE TURNED OFF AT 0815. THE ONLY RESPONSE NOTED IS ELEVATED HR AND RR. RIJ MLC INTACT. LB ARTERIAL LINE INTACT. NGT INTACT WITH GLUCERNA AT 30/HR. AMIODOARONE CONTINUES AT 0.5MG/MIN AND CARDIZEM AT 20MG/HR. HEPARIN DRIP CONTINUES AT 1195 UNITS/HR WITH A THERAPEUTIC PTT THIS AM. JAVED PATENT YELLOW URINE. A CXR WAS DONE. BLOOD CULTURES OBTAINED (ONE PERIPHERAL AND ONE FROM ARTERIAL LINE) AND URINE SENT FOR REFLEX TO CULTURE. HYPOTHERMIA BLANKET UNDER AND ON TOP OF PATIENT. PT HAD ROUTINE ASA VIA NGT AND A DOSE OF TYLENOL VIA THE NGT ALSO. TEMP HAS SLOWLY COME DOWN TO 100. DR CASTRO VISITED EARLIER. DR ALBA HAS VISITED. DR GALLEGO HAS VISITED. SEE ALL APPROPRIATE INTERVENTIONS.
--- NOTE | 2020-07-24 12:43 | NUR ---
SPEECH THERAPY Nusing screen received and chart review complete. Patient currently admitted to ICU with COVID-19 and acute respiratory failure. Patient is currently intubated (07/19) and is currently sedated. Speech therapy available for consult when medically appropriate. Thank you. Priyanka Allen MA CCC-MATHS TUTOR
--- NOTE | 2020-07-24 14:46 | NUR ---
WHEN DR GALLEGO WAS HERE EARLIER A ONE TIME DOSE OF ZEMURON 60MG WAS GIVEN TO ASSESS PLATEAU PRESSURE. DR GALLEGO PRESENT IN THE ROOM. TV INCREASED TO 525 AND PEEP TO 10. PT HAD EPISTAXIS FROM LEFT NARE. HE HAD ME TURN OFF HEPARIN DRIP AND IS TO REMAIN OFF FOR 6 HOURS. MAY RESUME IF EPISTAXIX DOES NOT RECUR. PT WAS REPOSITIONED TO HER BACK AND LATER THERE WAS SOME BLOOD FROM RT NARE BUT ON SUCTIONING IT CLEARED. WILL CONTINUE TO MONITOR. COOLING BLANKET TO MONITOR MODE FOR TEMP <100. KETAMINE WAS RESTARTED AT 1MCG/KG.
[2020-07-24 15:02] LABS: ABG BASE EXCESS -1.6 mmol/L (-2.0-2.0); ARTERIAL BLOOD GAS PH 7.324 (7.35-7.45)
[2020-07-24 15:58] LABS: CREATININE 1.68 mg/dL (0.55-1.02)
[2020-07-24 15:59] LABS: POTASSIUM 4.2 mmol/L (3.5-5.1)
--- NOTE | 2020-07-24 19:26 | NUR ---
PT HAD A COMPLETE BED BATH AFTER INCONTINENT FOR LARGE AMOUNT MUSHY GREEN/BROWN BM. NO FURTHER BLEEDING FROM NOSE SO HEPARIN DRIP RESUMED WTHOUT ANY BOLUS PER ORDER DR GALLEGO. SHE'S BEEN IN NSR WITH PAC'S LATER PART OF AFTERNOON. CARDIZEM DRIP HAS BEEN DECREASED TO 10MG/HR.
[2020-07-25] VITALS (24 sets, daily range): BP systolic 130–189; BP diastolic 62–97
--- NOTE | 2020-07-25 03:23 | NUR ---
Patients blood pressure reading 188/99, patient showing no signs of distress. Morphine given to try and decrease blood pressure. Will monitor and reassess.
[2020-07-25 05:57] LABS: ALBUMIN 2.6 gm/dl (3.1-4.5); CREATININE 1.63 mg/dL (0.55-1.02); POTASSIUM 4.8 mmol/L (3.5-5.1); TOTAL PROTEIN 5.8 gm/dL (6.4-8.2)
[2020-07-25 06:04] LABS: HEMATOCRIT 52.4 % (37.0-47.0); MEAN CORPUSCULAR HGB 22.6 pg (27.0-31.0); MEAN CORPUSCULAR HGB CONC 28.6 g/dl (33.0-37.0); MEAN PLATELET VOLUME 10.8 fl (9.6-12.3); NUCLEATED RED BLOOD CELL 0.2 % (0.0-0.0); PLATELET COUNT AUTOMATED 311 10*3/uL (130-400); RED BLOOD COUNT 6.63 10*6/uL (4.10-5.10); RED CELL DISTRI WIDTH 19.6 % (0-14.5); WHITE BLOOD COUNT 12.8 10*3/uL (4.8-10.8)
[2020-07-25 07:46] LABS: BURR CELLS MODERATE; MICROCYTOSIS SLIGHT; PLATELET SUFFICIENCY NORMAL (NORMAL); TOTAL CELLS COUNTED 100 #CELLS
[2020-07-25 09:08] LABS: ABG BASE EXCESS 0.1 mmol/L (-2.0-2.0); ARTERIAL BLOOD GAS PH 7.349 (7.35-7.45)
--- NOTE | 2020-07-25 09:14 | NUR ---
Moderatley sedated. Cough and gag present. no spontaneous opening of eyes. Oral mucosa moist w/ dried blood around mouth and nose IE: previous nose blee. Yaunkar suction for moderate cristiano clotted blood from oropharnyx. NGT and ETT secure. MLC /RIJ, A-line to LR . IV to RH dislodged and removed. HL to LH dressing changed. Repositioned to left. Sedation to off .
[2020-07-25 10:39] LABS: ABG BASE EXCESS -0.4 mmol/L (-2.0-2.0); ARTERIAL BLOOD GAS PH 7.348 (7.35-7.45)
--- NOTE | 2020-07-25 10:52 | NUR ---
Dr. Jasmine in to mayoradha.
--- NOTE | 2020-07-25 12:37 | NUR ---
Nutritional Support Services Note: Dx of acute respiratory failure, CHF, HTN, DM, afib, CAD. Pt is currently on a vent. OGT feedings of Glucerna 1.0 at 40cc/hr. Ht. 5'9 Wt.263# IBW 130-150. TF is providing pt with 960cc/960cal daily. Will follow as needed. Lucinda Tanner Rdn Ld
--- NOTE | 2020-07-25 13:39 | NUR ---
1230 sEDATION RESUMED. W/O PT. REGAINING CONCIOUSNESS . Gasping respiratins present. Duoderm placed to chin in anticipation of proning scheduled for 2 pm. Pupils 6mm and sluggish to react.
--- NOTE | 2020-07-25 14:42 | NUR ---
PT. PRONED AT 1430. ABG IN 2 HOURS.
[2020-07-25 16:41] LABS: ABG BASE EXCESS -2.5 mmol/L (-2.0-2.0); ARTERIAL BLOOD GAS PH 7.272 (7.35-7.45)
--- NOTE | 2020-07-25 20:55 | NUR ---
2000 REMAINS IN PRONE POSITION. ET SECURE TO VENT. PULSE OX 96%. OGT INTACT AND CLAMPED AT PRESENT TIME WHILE PRONED. ORAL CARE DONE. RIJ MLC INTACT. NIMBEX, KETAMINE AND CARDIZEM GTTS CONT. HEPARIN GTT ON HOLD UNTIL PT IS UNPRONED. ISOLATION CONT. LR ART LINE INTACT. ZEROED AND CALIBRATED WITH GOOD WAVEFORM AND DYNAMIC RESPONSE. JAEVD PATENT AND DRAINING CLEAR YELLOW URINE. INSULIN GTT CONT. Q1H BEDSIDE BLOOD SUGARS CONT.
--- NOTE | 2020-07-25 21:57 | NUR ---
TYLENOL GIVEN OGT FOR ELEVATED TEMP, WILL MONITOR.
--- NOTE | 2020-07-25 22:57 | NUR ---
EARLIER TYLENOL NOT EFFECTIVE YET. WILL CONT TO MONITOR.
[2020-07-26] VITALS (18 sets, daily range): BP systolic 97–134; BP diastolic 70–90
--- NOTE | 2020-07-26 02:29 | NUR ---
RECTAL TEMP NOW 101.4. Q1HOUR BED SIDE BLOOD SUGAR CHECKS CONT. REMAINS IN PRONE POSITION.
[2020-07-26 04:22] LABS: HEMATOCRIT 53.7 % (37.0-47.0); MEAN CELL VOLUME 80.5 fl (81.0-99.0); MEAN CORPUSCULAR HGB 22.6 pg (27.0-31.0); MEAN CORPUSCULAR HGB CONC 28.1 g/dl (33.0-37.0); MEAN PLATELET VOLUME 11.3 fl (9.6-12.3); NUCLEATED RED BLOOD CELL 0.2 % (0.0-0.0); PLATELET COUNT AUTOMATED 364 10*3/uL (130-400); RED BLOOD COUNT 6.67 10*6/uL (4.10-5.10); RED CELL DISTRI WIDTH 20.3 % (0-14.5); WHITE BLOOD COUNT 17.7 10*3/uL (4.8-10.8)
[2020-07-26 04:37] LABS: ALBUMIN 2.6 gm/dl (3.1-4.5); CREATININE 2.16 mg/dL (0.55-1.02); POTASSIUM 5.6 mmol/L (3.5-5.1); TOTAL PROTEIN 5.8 gm/dL (6.4-8.2)
[2020-07-26 04:39] LABS: ATYPICAL LYMPHS 3 % (0-0); TOTAL CELLS COUNTED 100 #CELLS
[2020-07-26 04:40] LABS: PLATELET SUFFICIENCY NORMAL (NORMAL)
--- NOTE | 2020-07-26 04:55 | NUR ---
HR ELEVATED AND AFIB/FLUTTER. PO LOPRESSOR GIVEN EARLY VIA OGT. CARDIZEM GTT INCREASED FOR THIS. WILL CONT TO MONITOR.
--- NOTE | 2020-07-26 05:19 | NUR ---
IS IN NSR IN THE 70-80'S NOW WITH PERIODS A-FIB/FLUTTER. WILL CONT TO MONITOR.
--- NOTE | 2020-07-26 06:11 | NUR ---
MONITOR NSR NOW IN THE 70'S. REMAINS PRONED. ET SECURE TO VENT. PULSE OX 97%. ART LINE IS VERY POSITIONAL. INSULIN GTT CONT AT 3UNITS. Q1H BEDSIDE BLOOD SUGAR CHECKS CONT. JAVED PATENT. CONDITION GUARDED.
--- NOTE | 2020-07-26 06:53 | NUR ---
0630 PT UNPRONED WITH ANESTHESIA HERE. ALL LINES SECURE. ART LINE L BRACHIAL SITE IS VERY POSITIONAL. OCTAVIA FROM ANESTHESA AWARE AND SAID HE WILL REPLACE TODAY IF NEEDED. DUODERM REMOVED FROM CHIN AND CHEEKS. FACE CLEANED. WILL REPLACE. HEPARIN GTT RESUMED.
--- NOTE | 2020-07-26 09:00 | NUR ---
Patient is in COVID isolation precautions and intubated. CM will continue to follow for any discharge planning needs.
[2020-07-26 09:13] LABS: ARTERIAL BLOOD GAS PH 7.304 (7.35-7.45)
--- NOTE | 2020-07-26 12:43 | NUR ---
0800 Full assessemnt. WUnresponsive. no cough or gag , no response to sternal rub, No corneal reflex. Nimbex and Ketamine to off. Dried blood noted around nose and mouth, cleansed. Tube tamer changed per RT Prudencio. Duoderms removed from face , revealing 2cm x 2cm skin sheer to rt. cheek bone. NGT secure and tube feed resumed. ETT secure. RIJ/ MLC all lines patent. Hourly glucoses , titrating up. A-line wave form dampened. 0900 Anesthesia Brayden BULK STATION OPERATOR in and A-line was replaced. LR a-line placed and L bracheal a-Line was dc'd . pressure to site x 3 min. 1100 Repositioned to left. Oral care given. Mouth movement noted w/ this oral care. No spontaneous opening of eyes , No facial grimace w/ painful stimuli. Pupils slightly unequal w/ rt. @ 2mm and lt @ 4mm. sluggish response. ' Dr. Samaniego in to oma. Dr. Velásquez aware of husbands wish to speak w/ a physician. requested phone to be place to pt's ear so he could speak to her. Post call pt. remained unresponsive. Repositioned to left. Oral care given. Dr. Jasmine in to oma.
--- NOTE | 2020-07-26 15:32 | NUR ---
Juve Alexander AND dR Brownlee IN TO [facility].
--- NOTE | 2020-07-26 17:03 | NUR ---
rEPOSITIONED TO BACK. Yawns w/ oral care, cough and gag intact. No spontaneous opening of eyes. oral care moist w/ blood tinged sputum.
--- NOTE | 2020-07-26 20:21 | NUR ---
1948 RESTING IN BED IN SUPINE POSITION. HOB ELEVATED. SIDE RAILS UP X'S 2. WRIST RESTRAINTS REMAIN OFF. NO RESPONSE TO VERBAL OR PAINFUL STIMULI NOTED. OGT INTACT. TF MAINTAINED. FREE H20 GIVEN ORDERED. PLACEMENT CONFIRMED WITH AIR BOLUS/AUSCULTATION. RIJ INTACT WITH ALL PORTS PATENT. INSULIN GTT AND HEPARIN GTTS CONT. Q2H BEDSIDE BLOOD SUGARS CONT. L RADIAL ART LINE INTACT. ZEROED AND CALIBRATED WITH GOOD WAVEFORM AND DYNAMIC RESPONSE. JAVED PATENT AND DRAINING CLEAR YELLOW URINE. RECTAL TEMP IS 100.6 COOLING BLANKET INTACT. ISOLATION MAINTAINED.
[2020-07-27] VITALS: BP 135/74
--- NOTE | 2020-07-27 00:37 | NUR ---
0000 COMPLETE BED BATH GIVEN AND LINENS CHANGED. REPOSITIONED. MONITOR BACK TO NSR. WILL CONT TO MONITOR. REMAINS UNRESPONSIVE. PUPILS EQUAL, BUT REMAINS UNREACTIVE.
--- NOTE | 2020-07-27 01:52 | NUR ---
0152 TYLENOL VIA OGT FOR ELEVATED TEMP. WILL MONITOR
--- NOTE | 2020-07-27 02:52 | NUR ---
0252 RECTAL TEMP IS 100.2.
[2020-07-27 04:00] VITALS: BP 108/79
[2020-07-27 05:57] LABS: HEMATOCRIT 50.5 % (37.0-47.0); MEAN CELL VOLUME 81.8 fl (81.0-99.0); MEAN CORPUSCULAR HGB 22.7 pg (27.0-31.0); MEAN CORPUSCULAR HGB CONC 27.7 g/dl (33.0-37.0); MEAN PLATELET VOLUME 11.7 fl (9.6-12.3); NUCLEATED RED BLOOD CELL 0.1 % (0.0-0.0); PLATELET COUNT AUTOMATED 266 10*3/uL (130-400); RED BLOOD COUNT 6.17 10*6/uL (4.10-5.10); RED CELL DISTRI WIDTH 20.9 % (0-14.5); WHITE BLOOD COUNT 26.9 10*3/uL (4.8-10.8)
[2020-07-27 06:07] LABS: ALBUMIN 2.5 gm/dl (3.1-4.5); CREATININE 2.11 mg/dL (0.55-1.02); POTASSIUM 5.8 mmol/L (3.5-5.1); TOTAL PROTEIN 5.4 gm/dL (6.4-8.2)
--- NOTE | 2020-07-27 06:19 | NUR ---
REMAINS UNRESPONSIVE TO VERBAL OR PAINFUL STIMULI. SEDATION REMAINS OFF, DRSG CHANGED TO RIJ MLC. PERIODS OF AFIB/FLUTTER CONT WITH A VR HIGH 140.PULSE OX 94% HEPARIN AND INSULIN GTTS CONT. JAVED PATENT. CONDITION GUARDED.
[2020-07-27 06:40] LABS: ACT PARTIAL THROMBO TIME 109.9 SECONDS (20.0-32.1)
[2020-07-27 08:00] VITALS: BP 112/70
[2020-07-27 08:21] LABS: OVALOCYTES MODERATE; PLATELET SUFFICIENCY NORMAL (NORMAL); TOTAL CELLS COUNTED 100 #CELLS
--- NOTE | 2020-07-27 08:30 | NUR ---
DR CABRERA MADE AWARE OF WOUND TO RT CHIN AND WILL GET RECOMMENDATIONS FROM WOUND CARE.
[2020-07-27 08:55] LABS: ABG BASE EXCESS -2.8 mmol/L (-2.0-2.0); ARTERIAL BLOOD GAS PH 7.304 (7.35-7.45)
--- NOTE | 2020-07-27 09:00 | NUR ---
Patient is in COVID isolation precautions and intubated. CM will continue to follow for any discharge planning needs.
--- NOTE | 2020-07-27 09:37 | NUR ---
GREGORIA ESPINAL HERE AND STAGED WOUND TO RT CHIN FFOUND AT 0800 WITH AM ASSESSMENT..
--- NOTE | 2020-07-27 11:50 | NUR ---
SPEECH THERAPY Nusing screen and chart review complete. Patient remains intubated at this time with dx of COVID-19. Speech therapy is avaiable for consult when medically approppriate. Thank you. Priyanka Allen MA [facility]-AUTOMOTIVE MECHANICAL ENGINEER
[2020-07-27 12:00] VITALS: BP 115/70
--- NOTE | 2020-07-27 12:17 | NUR ---
DR SERGO HENRIQUEZ
--- NOTE | 2020-07-27 13:29 | NUR ---
BACK FROM RADIOLOGY - DR GALLEGO STILL PRESENT AND CASE DISCUSSED
[2020-07-27 16:00] VITALS: BP 113/55
--- NOTE | 2020-07-27 16:00 | NUR ---
ETT PULLED BACK TO 26 AT LIP
[2020-07-27 17:05] LABS: ABG BASE EXCESS -3.7 mmol/L (-2.0-2.0); ARTERIAL BLOOD GAS PH 7.288 (7.35-7.45)
[2020-07-27 18:30] LABS: HEMATOCRIT 46.3 % (37.0-47.0); MEAN CELL VOLUME 81.7 fl (81.0-99.0); MEAN CORPUSCULAR HGB 22.9 pg (27.0-31.0); MEAN CORPUSCULAR HGB CONC 28.1 g/dl (33.0-37.0); MEAN PLATELET VOLUME 11.1 fl (9.6-12.3); NUCLEATED RED BLOOD CELL 0.1 % (0.0-0.0); PLATELET COUNT AUTOMATED 267 10*3/uL (130-400); RED BLOOD COUNT 5.67 10*6/uL (4.10-5.10); RED CELL DISTRI WIDTH 21.2 % (0-14.5)
[2020-07-27 18:42] LABS: ALBUMIN 2.3 gm/dl (3.1-4.5); CREATININE 2.2 mg/dL (0.55-1.02); TOTAL PROTEIN 5.1 gm/dL (6.4-8.2)
[2020-07-27 18:49] LABS: PLATELET SUFFICIENCY NORMAL (NORMAL); TOTAL CELLS COUNTED 100 #CELLS
[2020-07-27 18:50] LABS: OVALOCYTES FEW
[2020-07-27 19:07] VITALS: BP 95/60
--- NOTE | 2020-07-27 22:00 | NUR ---
ASSESSMENT DONE - PUPILS EQUAL AND SLOW TO REACT..+ GAG REFLEX..NO BABINSKI.. ETT SECURE W/ 26 AT LIP, OGT SECURE W/ PLACEMENT CHECKED BY AIR BOLUS THEN FEEDING AT 40 CC/HR.. RIJ-MLC & LEFT ARTLINE SECURE & PATENT.. TEMP REMAINS ELEVATED - TYLENOL VIA OGT & COOLING BLANKET IN USE - DULCOLAX SUPPOSITORY GIVEN FOR NO BM SINCE THURSDAY
[2020-07-28] VITALS: BP 105/72
--- NOTE | 2020-07-28 03:23 | NUR ---
TYLENOL GIVEN VIA OG TUBE FOR ELEVATED TEMPERATURE.
[2020-07-28 04:00] VITALS: BP 101/59
[2020-07-28 04:56] LABS: HEMATOCRIT 42.6 % (37.0-47.0); MEAN CELL VOLUME 81.3 fl (81.0-99.0); MEAN CORPUSCULAR HGB 22.9 pg (27.0-31.0); MEAN CORPUSCULAR HGB CONC 28.2 g/dl (33.0-37.0); MEAN PLATELET VOLUME 11.6 fl (9.6-12.3); NUCLEATED RED BLOOD CELL 0.1 % (0.0-0.0); PLATELET COUNT AUTOMATED 214 10*3/uL (130-400); RED BLOOD COUNT 5.24 10*6/uL (4.10-5.10); RED CELL DISTRI WIDTH 20.7 % (0-14.5); WHITE BLOOD COUNT 26.7 10*3/uL (4.8-10.8)
[2020-07-28 05:16] LABS: ALBUMIN 2.1 gm/dl (3.1-4.5); CREATININE 2.21 mg/dL (0.55-1.02); POTASSIUM 5.6 mmol/L (3.5-5.1); TOTAL PROTEIN 4.7 gm/dL (6.4-8.2)
[2020-07-28 05:30] LABS: ACT PARTIAL THROMBO TIME 46.1 SECONDS (20.0-32.1)
[2020-07-28 05:43] LABS: OVALOCYTES FEW; PLATELET SUFFICIENCY NORMAL (NORMAL); TOTAL CELLS COUNTED 100 #CELLS
[2020-07-28 05:44] LABS: BURR CELLS FEW; ROULEAUX SLIGHT
--- NOTE | 2020-07-28 05:50 | NUR ---
RN IN TO SEE PATIENT, PATIENT HAS AGAIN HAD A NOSE BLEED. BLOOD IS ALL DOWN THE LEFT SIDE OF FACE AND HAS SOAKED THE PILLOW CASE AND THE SHEET ON THE BED. HEPARIN GTT WAS STOPPED AT THIS TIME. BLOOD WAS CLEANED FROM ALL THESE AREAS. BLOOD WAS ALSO SUCTIONED FROM THE ET TUBE WELL. DR ABEBE CALLED AND MADE AWARE THAT HEPARIN GTT WAS STOPPED PER THE RN'S JUDGEMENT. STATES THAT THIS IS FINE AND TO MONITOR THE BLEEDING.
--- NOTE | 2020-07-28 06:51 | NUR ---
FOB COLLECTED AND SENT AT THIS TIME. PATIENT HAS LARGE BM APPROXIMATELY 20 MINUTES AGO, VERY DARK TARRY LIKE
--- NOTE | 2020-07-28 07:40 | NUR ---
FiO2 INCREASED TO 50% AFTER O2 SATS STAYING MID 80'S ON 45% SATS UP TO 91% ON 50%
[2020-07-28 08:00] VITALS: BP 114/69
--- NOTE | 2020-07-28 08:30 | NUR ---
DR PACE HERE AND CASE DISCUSSED - MULTIPLE MED CHANGES ORDERED
--- NOTE | 2020-07-28 09:00 | NUR ---
DIG IV GIVEN FOR ELEVATED HEART RATE AND TYLENOL GIVEN FOR ELEVATED TEMP DESPITE COOLING BLANKET IN USE..ETT SECURE W/ 26 AT LIP. NGT SECURE & PLACEMENT CHECKED WITH AIR BOLUS THEN FEEDING RESUMED @ 50 cc/hr AND FREE WATER GIVEN. LEFT ARTLINE SECURE & PATENT WITH GOOD HEMODYNAMIC RESPONSE AFTER ZERD'D AND CALIBRATED. ABD SOFT WITH NORMOACTIVE BS..TEGAN SECURE & PATENT. HEEL RAISERS & SCD ON. HYDROGUARD TO BILAT FEET. INSULIN DRIP INCREASED TO 11 cc/hr. HEPARIN DRIP & D5W INFUSING.
[2020-07-28 09:12] LABS: ARTERIAL BLOOD GAS PH 7.33 (7.35-7.45)
--- NOTE | 2020-07-28 09:45 | NUR ---
A FLUTTER VIA MONITOR RATE 118-130..
[2020-07-28 12:00] VITALS: BP 95/65
--- NOTE | 2020-07-28 14:54 | NUR ---
DR GALLEGO ROUNDED - CASE DISCUSSED
--- NOTE | 2020-07-28 15:52 | NUR ---
RECEIVED A CALL FROM [facility] - THEY HAVE ACCEPTED HER AND DR SCOTT WILL BE THE ACCEPTING PHYSICIAN.. THEY NEED PREAUTH PRIOR TO TRANSFER - AMBULANCE OPERATIONS SUPERVISOR NOTIFIED.. HERE TO SEE PATIENT
[2020-07-28 16:00] VITALS: BP 120/77
--- NOTE | 2020-07-28 16:31 | NUR ---
JUST LEFT AND TOOK BELONGINGS INCLUDING DENTURES AND HE SAID HE HAS THE CELL PHONE ALREADY..
--- NOTE | 2020-07-28 17:01 | NUR ---
PER [facility] THEY ARE CANCELLING THE TRANSFER PER MED CALL [employer] THEY CAN NOT TAKE HER AT THIS TIME.. FEEL FREE TO CALL AGAIN AND REQUEST TRANSFER IF CONDITION WORSENS. PER DR MARTINES [facility] REFUSED TRANSFER ALREADY - NURSE REQUESTED DR TROTTER BE NOTIFIED IN CASE HE WANTS [facility] OR SOME PLACE ELSE CALLED.
--- NOTE | 2020-07-28 17:04 | NUR ---
GLOBAL COMPENSATION MANAGER AIMEE REED NOTIFIED OF TRANSFER CANCELLED
--- NOTE | 2020-07-28 17:07 | NUR ---
NOTIFIED OF NO TRANSFER AND ALSO THAT THE INSURANCE WAS SAYING THEY WEREN'T SURE THEY WOULD EVEN COVER IT IT IS OUT OF STATE
[2020-07-28 20:00] VITALS: BP 111/63
--- NOTE | 2020-07-28 20:07 | NUR ---
PATIENT MEDICATED WITH TYLENOL VIA OG TUBE FOR ELEVATED TEMPERATURE OF 13.2 PER CONTINUOUS RECTAL PROBE. COOLING BLANKET WAS APPLIED TO PATIENT AND ALL UNNECCESSARY BLANKET AND PILLOWS WERE REMOVED. RN WILL MONITOR FOR EFFECTIVENESS OF MEDICATION.
--- NOTE | 2020-07-28 22:05 | NUR ---
RN IN TO ASSESS PATIENT, PATIENT HAS BLOOD ALL DOWN THE LEFT SIDE OF THE FACE AND ON CHEST. BLOOD HAD SATURATED THE PILLOWCASE AND THE SHEET UNDERNEATH. HEPARIN GTT STOPPED AT THIS TIME, PER THIS RN'S NURSING JUDGEMENT. BLOOD WAS CLEANED UP. LARGE AMOUNT OF BRIGHT RED BLLOD WERE SUCTIONED ORALLY FROM PATIENT AND BLOOD WAS ALSO SUCTIONED FROM THE ET TUBE. DR ABEBE WAS CALLED AND MADE AWARE OF THIS, STATES THAT THIS IS FINE BUT TO MONITOR THE BLEEDING
[2020-07-29] VITALS: BP 103/79
[2020-07-29 04:00] VITALS: BP 121/70
--- NOTE | 2020-07-29 04:35 | NUR ---
PATIENT BATHED AT THIS TIME. TOLERATED WELL. BLEEDING CONTINUED AT THE NOSE AND COPIOUS AMOUNTS OF BLOOD WERE SUCTIONED OUT OF THE MOUTH WELL. PULSE OXIMETRY REMAINS 89-90% RN WILL CONTINUE TO MONITOR
--- NOTE | 2020-07-29 05:30 | NUR ---
MORNING BLOODWORK COLLECTED AND SENT AT THIS TIME,. PATIENT TOLERATED WELL. AGAIN WAS SUCTION ORALLY FOR LARGE AMOUNTS OF BRIGHT RED BLOOD. HEPARIN REMAINS OFF.
--- NOTE | 2020-07-29 06:05 | NUR ---
DR VIEIRA MADE AWARE OF PRELIMINARY POSITIVE BLOOD CULTURES, YI RECIEVED
[2020-07-29 06:25] LABS: HEMATOCRIT 44.1 % (37.0-47.0); MEAN CELL VOLUME 82.1 fl (81.0-99.0); MEAN CORPUSCULAR HGB 22.9 pg (27.0-31.0); MEAN CORPUSCULAR HGB CONC 27.9 g/dl (33.0-37.0); MEAN PLATELET VOLUME 12.9 fl (9.6-12.3); NUCLEATED RED BLOOD CELL 0.2 10*3/uL (0.0-0.0); NUCLEATED RED BLOOD CELL 0.6 % (0.0-0.0); PLATELET COUNT AUTOMATED 278 10*3/uL (130-400); RED BLOOD COUNT 5.37 10*6/uL (4.10-5.10); RED CELL DISTRI WIDTH 20.6 % (0-14.5); WHITE BLOOD COUNT 34.3 10*3/uL (4.8-10.8)
[2020-07-29 06:35] LABS: ALBUMIN 2.2 gm/dl (3.1-4.5); CREATININE 2.58 mg/dL (0.55-1.02); POTASSIUM 5.8 mmol/L (3.5-5.1)
[2020-07-29 06:49] LABS: TOTAL PROTEIN 4.9 gm/dL (6.4-8.2)
[2020-07-29 07:27] LABS: TOTAL CELLS COUNTED 100 #CELLS
[2020-07-29 07:28] LABS: BURR CELLS FEW; OVALOCYTES FEW; PLATELET SUFFICIENCY NORMAL (NORMAL)
--- NOTE | 2020-07-29 07:52 | NUR ---
Shift chart check completed.24 HR chart check completed.
[2020-07-29 08:00] VITALS: BP 90/73
[2020-07-29 09:22] LABS: ABG BASE EXCESS -4.7 mmol/L (-2.0-2.0); ARTERIAL BLOOD GAS PH 7.257 (7.35-7.45)
[2020-07-29 12:00] VITALS: BP 105/73
--- NOTE | 2020-07-29 12:12 | NUR ---
DR MORGAN MADE AWARE OF LABS. ORDERS RECEIVED. UPDATED VIA PHONE.
[2020-07-29 15:29] LABS: CREATININE 2.91 mg/dL (0.55-1.02)
[2020-07-29 15:39] LABS: POTASSIUM 6.5 mmol/L (3.5-5.1)
[2020-07-29 16:00] VITALS: BP 104/61
--- NOTE | 2020-07-29 16:11 | NUR ---
DR MORGAN NOTIFIED OF 1500 BMP, INCLUDING CRITICAL VALUES OF BUN 128 AND K+ OF 6.5. ORDERS WERE RECEIVED.
[2020-07-29 17:00] LABS: ARTERIAL BLOOD GAS PH 7.22 (7.35-7.45)
[2020-07-29 17:17] LABS: ABG BASE EXCESS -7.7 mmol/L (-2.0-2.0)
[2020-07-29 20:00] VITALS: BP 110/39
[2020-07-29 21:15] LABS: CREATININE 3.42 mg/dL (0.55-1.02)
[2020-07-29 21:39] LABS: POTASSIUM 6.4 mmol/L (3.5-5.1)
[2020-07-30] VITALS (57 sets, daily range): BP systolic 62–169; BP diastolic 37–96
--- NOTE | 2020-07-30 00:10 | NUR ---
PT BS 457. DR CABRERA NOTIFIED AND ORDER FOR ANOTHER 20U OF REGULAR INSULIN TO BE GIVEN NOW. ALSO UPDATED ON DR MORGAN ORDERS AND HIS SAYING SHE NEEDS TO HAVE A DIALYSIS CATH IN THE MORNING. DR CABRERA SAID TO PUT ORDER FOR DIALYSIS CATH IN UNDER DR MORGAN AND TO CONSULT DR CHATTERJEE IN AM.
[2020-07-30 03:11] LABS: ABG BASE EXCESS -7.8 mmol/L (-2.0-2.0); ARTERIAL BLOOD GAS PH 7.198 (7.35-7.45)
--- NOTE | 2020-07-30 04:30 | NUR ---
DR GALLEGO NOTIFIED AND UPDATED ON PT STATUS. NEW ORDERS FOR 1 AMP BICARB, D5W WITH 2 AMPS IF BICARB AT 50CC/HR, INCREASE O2 TO 60%, START KETAMINE GTT, START LEVOPHED GTT, START VASOPRESSIN GTT IF NEEDED, START EPI GTT IF NEEDED.
[2020-07-30 06:09] LABS: ALBUMIN 1.7 gm/dl (3.1-4.5); CREATININE 4.18 mg/dL (0.55-1.02); TOTAL PROTEIN 4.3 gm/dL (6.4-8.2)
[2020-07-30 06:14] LABS: POTASSIUM 5.4 mmol/L (3.5-5.1)
--- NOTE | 2020-07-30 06:35 | NUR ---
DR CHATTERJEE NOTIFIED OF CONSULT FOR DIALYSIS PORT.
[2020-07-30 06:39] LABS: HEMATOCRIT 35.8 % (37.0-47.0); MEAN CELL VOLUME 83.1 fl (81.0-99.0); MEAN CORPUSCULAR HGB 23.4 pg (27.0-31.0); MEAN CORPUSCULAR HGB CONC 28.2 g/dl (33.0-37.0); NUCLEATED RED BLOOD CELL 0.4 10*3/uL (0.0-0.0); NUCLEATED RED BLOOD CELL 1.5 % (0.0-0.0); RED BLOOD COUNT 4.31 10*6/uL (4.10-5.10); RED CELL DISTRI WIDTH 20.1 % (0-14.5); WHITE BLOOD COUNT 27.1 10*3/uL (4.8-10.8)
[2020-07-30 06:42] LABS: PLATELET COUNT AUTOMATED 178 10*3/uL (130-400)
--- NOTE | 2020-07-30 06:57 | NUR ---
DR CABRERA NOTIFIED OF REFLEX 427. ORDER TO GIVE REGULAR INSULIN 20 UNITS SQ NOW. ALSO NOTIFIED OF CALCIUM 6.9 AND K+ 5.4.
[2020-07-30 07:03] LABS: OVALOCYTES FEW; PLATELET SUFFICIENCY NORMAL (NORMAL); TOTAL CELLS COUNTED 100 #CELLS
[2020-07-30 07:04] LABS: POLYCHROMASIA SLIGHT
[2020-07-30 08:22] LABS: ARTERIAL BLOOD GAS PH 7.212 (7.35-7.45)
[2020-07-30 08:24] LABS: ABG BASE EXCESS -6.2 mmol/L (-2.0-2.0)
--- NOTE | 2020-07-30 09:00 | NUR ---
Patient is in COVID isolation precautions and intubated. CM will follow for any discharge planning needs.
--- NOTE | 2020-07-30 09:58 | NUR ---
SPOKE WITH THE AND HE STATED THAT HE WILL TELL DR TROTTER IT IS OK TO PLACE THE DIALYSIS CATHETER AND THAT IT IS OK TO REPLACE THE MLC. HE WANTS US TO DO WHATEVER IS NECESSARY
--- NOTE | 2020-07-30 11:06 | NUR ---
Nursing screen received and chart reviewed. Patient admitted for COVID-19 and she is currently intubated. Patient is not appropriate for OT at this time due to being intubated. Please send OT orders when patient is extubated and if medically appropriate for an OT evaluation. Thank you. Jennie Wyatt, OTR/L
--- NOTE | 2020-07-30 11:20 | NUR ---
PHYSICAL THERAPY Nursing screen received and chart reviewed. Patient continues to be mechanically intubated. Recommend skilled PT services when medically appropriate to participate. Thank you. Lisha Blackburn,PT,DPT
--- NOTE | 2020-07-30 12:00 | NUR ---
0930 RECTAL JAVED BAG CHANGED 1100 LEVOPHED DRIP INFUSING 1115 RT FEMORAL DIALYSIS CATHETER INSERTED AT BEDSIDE BY DR CHATTERJEE 1130 J-[facility] INSERTED 1149 DR GALLEGO CHANGED TO PRESSURE SUPPORT ORDER TO RESTRAT INSULIN DRIP
[2020-07-30 14:44] LABS: ABG BASE EXCESS -7.5 mmol/L (-2.0-2.0)
[2020-07-30 14:46] LABS: ARTERIAL BLOOD GAS PH 7.145 (7.35-7.45)
--- NOTE | 2020-07-30 17:00 | NUR ---
1300 LIJ-MLC REMOVED PER DR TROTTER.. 1400 NEW LIJ-MLC PLACED BY DR TROTTER AND RT ARTLINE PLACED BY ANESTHESIA & DR TROTTER AFTER LEFT WRIST ART REMOVED..LEVOPHED MAXED OUT.. [address] LARA 1600 LEVOPHED MAXED OUT/ VASOPRESSIN MAXED OUT - EPI ORDERED 1700 SBP 60'S.. HR AFL 166 TEMP 104.4 SCLERA EDEMA RT EYE. NO NEURO
--- NOTE | 2020-07-30 17:28 | NUR ---
DR TROTTER HERE AND SPOKE WITH THE FAMILY WHO ARE PRESENT - CONDITION SERIOUS - DECISION TO MAKE PATIENT [facility] CALLED.. AWAITING RETURN CALL - CALLED THE 2 SONS TO COME IN
--- NOTE | 2020-07-30 17:54 | NUR ---
INFORMATION FAXED [facility] - CODE STATUS CHANGED TO [facility]- MEDS ONLY
--- NOTE | 2020-07-30 19:30 | NUR ---
[facility] IN TO SPEAK WITH OF PATIENT AND TO GO OVER AND SIGN PAPERWORK. \ SISTERS OF PATIENT VISITING PATIENT THROUGH THE WINDOW. EXPLAINED REASONS FOR NOT REENTERING THE ROOM.
--- NOTE | 2020-07-30 20:15 | NUR ---
[facility] HERE AND WAITING UNTIL AFTER EXTUBATION.
--- NOTE | 2020-07-30 20:15 | NUR ---
IN TO SPEND TIME WITH PATIENT PRIOR TO STARTING HOSICE MEDICATIONS.
--- NOTE | 2020-07-30 20:18 | NUR ---
NO BLOOD GLUCOSE WAS PERFORMED FOR 1999 FAMILY IS IN VISITING AND REQUESTED IT NOT TO BE DONE. ALSO DISCHARGE WOUND PHOTOS WILL NOT BE DONE FAMILY HAS REQUESTED TO NOT DISTURB PATIENT ANY MORE THAN NECESSARY.
--- NOTE | 2020-07-30 20:27 | NUR ---
SONS IN VISITING PATIENT FROM WINDOW. HOSPICE NURSE SG REMAINS HERE, AWAITING DISCHARGE AND READMISSSION.
[2020-07-31 05:06] LABS: HEP B CORE AB, IGM Negative (Negative); HEPATITIS B SURFACE AG Negative (Negative); HEPATITIS C VIRUS ANTIBODY <0.1 s/co (0.0-0.9)
== END 2020-07-30 20:17 | disposition hospice, home (50) | DRG 207 ==
LOC: ED 18:03 → ICCU 20:50 → EDHOLD 20:50 → ICCU 07-19 12:18
PROVIDERS: Emergency Medicine; Internal Medicine; Internal Medicine Critical Care Medicine; Internal Medicine Nephrology; Social Worker Clinical; ADMIT Internal Medicine; ATTEND Internal Medicine
PROC: 5A09357 Assistance with Respiratory Ventilation, Less than 24 Consecutive Hours, Continuous Positive Airway Pressure (ICD-10-PCS; 2020-07-18)
PROC: 0BH17EZ Insertion of Endotracheal Airway into Trachea, Via Natural or Artificial Opening (ICD-10-PCS; principal; 2020-07-19)
PROC: 5A1955Z Respiratory Ventilation, Greater than 96 Consecutive Hours (ICD-10-PCS; 2020-07-19)
PROC: 02HV33Z Insertion of Infusion Device into Superior Vena Cava, Percutaneous Approach (ICD-10-PCS; 2020-07-19)
PROC: B548ZZA Ultrasonography of Superior Vena Cava, Guidance (ICD-10-PCS; 2020-07-19)
PROC: XW033E5 Introduction of Remdesivir Anti-infective into Peripheral Vein, Percutaneous Approach, New Technology Group 5 (ICD-10-PCS; 2020-07-22)
PROC: 03HY32Z Insertion of Monitoring Device into Upper Artery, Percutaneous Approach (ICD-10-PCS; 2020-07-26)
PROC: 02HV33Z Insertion of Infusion Device into Superior Vena Cava, Percutaneous Approach (ICD-10-PCS; 2020-07-30)
PROC: B548ZZA Ultrasonography of Superior Vena Cava, Guidance (ICD-10-PCS; 2020-07-30)
PROC: 03HY32Z Insertion of Monitoring Device into Upper Artery, Percutaneous Approach (ICD-10-PCS; 2020-07-30)
DX: U07.1 COVID-19 (principal); J96.01 Acute respiratory failure with hypoxia; I21.4 Non-ST elevation (NSTEMI) myocardial infarction; N17.0 Acute kidney failure with tubular necrosis; J96.02 Acute respiratory failure with hypercapnia; E44.0 Moderate protein-calorie malnutrition; E87.1 Hypo-osmolality and hyponatremia; D68.59 Other primary thrombophilia; I48.92 Unspecified atrial flutter; I16.1 Hypertensive emergency; I48.19 Other persistent atrial fibrillation; Z68.41 Body mass index [BMI] 40.0-44.9, adult; I13.0 Hypertensive heart and chronic kidney disease with heart failure and stage 1 through stage 4 chronic kidney disease, or unspecified chronic kidney disease; I25.10 Atherosclerotic heart disease of native coronary artery without angina pectoris; I48.0 Paroxysmal atrial fibrillation; E11.65 Type 2 diabetes mellitus with hyperglycemia; J44.9 Chronic obstructive pulmonary disease, unspecified; K21.9 Gastro-esophageal reflux disease without esophagitis; Z96.653 Presence of artificial knee joint, bilateral; F41.9 Anxiety disorder, unspecified; G25.81 Restless legs syndrome; E78.5 Hyperlipidemia, unspecified; D75.1 Secondary polycythemia; E11.42 Type 2 diabetes mellitus with diabetic polyneuropathy; E83.41 Hypermagnesemia; E78.2 Mixed hyperlipidemia; S00.83XA Contusion of other part of head, initial encounter; X58.XXXA Exposure to other specified factors, initial encounter; E66.01 Morbid (severe) obesity due to excess calories; N18.9 Chronic kidney disease, unspecified; B99.8 Other infectious disease; I87.2 Venous insufficiency (chronic) (peripheral); E11.22 Type 2 diabetes mellitus with diabetic chronic kidney disease; E87.6 Hypokalemia; R74.01 Elevation of levels of liver transaminase levels; Z95.5 Presence of coronary angioplasty implant and graft; Z98.51 Tubal ligation status; Z98.891 History of uterine scar from previous surgery; Z82.49 Family history of ischemic heart disease and other diseases of the circulatory system; Z91.041 Radiographic dye allergy status; Z87.891 Personal history of nicotine dependence; Y93.89 Activity, other specified; Y92.89 Other specified places as the place of occurrence of the external cause; Y99.8 Other external cause status; I50.9 Heart failure, unspecified

== ENCOUNTER 2020-07-30 20:26 | Inpatient (IN) | payer OTHER ==
[~2020-07-30] VITALS: Ht 172.7 cm; Wt 128.8 kg
[~2020-07-30 20:26] MED LIST changes: +LASIX20 MG PO; +NEURONTIN300 MG PO; +ONDANSETRON4 MG SL; +ONGLYZA2.5 MG PO; +OYSTER SHELL C1 EAC3 PO; +PROVENTIL HFA6.7 GM INH; +SPIRIVA18 MCG PO; +VICO75300 PO
[2020-07-30 20:30] VITALS: BP 105/65
--- NOTE | 2020-07-30 20:30 | NUR ---
Time: 2029 A 65 year old FEMALE admitted to [facility] under services of JACLYN SEGURA DO. Pt. arrived via NONE [place]. Chief complaint: COVID-19 POSITIVE AND ADMITTED WITH [facility]. VALENTINE BERNARD
--- NOTE | 2020-07-30 21:19 | NUR ---
MORPHINE AND ATIVAN GIVEN AT THIS TIME, PER HOSPICE NURSE RECOMMENDATIONS, PRIOR TO THE EXTUBATION.
--- NOTE | 2020-07-30 21:34 | NUR ---
PATIENT AGAIN MEDICATED WITH MORPHINE AND ATIVAN PER DRS ORDERS. PATIENT RESPIRATIONS HAVE GONE FROM 30-26, AWAITING EXTUBATION TO ALLOW PATIENT TO RELAX.
--- NOTE | 2020-07-30 21:49 | NUR ---
PATIENT ADMINISTERED MORPHINE AND ATIVAN PER DRS ORDER JUST PRIOR TO BEING EXTUBATED BY THIS RN. PATIENT TOLERATED EXTUBATION WELL, OXYGEN WAS APPLIED FOR COMFORT VIA FACEMASK. PATIENT HAVING GASPING RESPIRATIONS, ALL IV MEDICATIONS STOPPED. BLOOD PRESSURE 90'S SYSOTLIC AND DECREASING FAST. RN IN ROOM WITH PATIENT.
[2020-07-30 22:18] VITALS: BP 0/0
--- NOTE | 2020-07-30 22:18 | NUR ---
PATIENT ASYSTOLE ON THE CHILD SUPPORT CASE OFFICER. PATIENT IS PULSELESS UPON CHECKING ALL PULSES. VERIFIED WITH THIS RN AND KEEGAN RN. HEART IS NO LONGER BEATING. HOSPICE NURSE OUTSIDE THE DOOR. MADE AWARE IMMEDIATELY.
--- NOTE | 2020-07-30 22:35 | NUR ---
BACK TO SAY GOOD BYE TO PATIENT.
--- NOTE | 2020-07-30 22:45 | NUR ---
DR ANDINO MADE AWARE THAT PATIENT HAS PASSED. STATES THAT DR TROTTER WILL BE SIGNING THE CERTIFICATE.
--- NOTE | 2020-07-30 22:50 | NUR ---
ONE CALL CALLED AND DISCUSSED CASE, NOT A CANDIATE PER ONE CALL. CASE # IS [id number]
--- NOTE | 2020-07-30 23:03 | NUR ---
SPOKE WITH ERICKA THE MEDICAL CASE MANAGER, STATES SHE IS NOT TAKING THE CASE.
--- NOTE | 2020-07-31 01:03 | NUR ---
PATIENT CLEANED AND AWAITING HOME EXPANDED DUTY DENTAL ASSISTANT.
--- NOTE | 2020-07-31 02:39 | NUR ---
[facility] HERE TO DIRECTOR OF [employer] BODY. ALL BELONGINGS WERE PREVIOSLY SENT HOME WITH PATIENTS .
== END 2020-07-31 02:58 | disposition expired | DRG 177 ==
LOC: ICCU 20:26
PROVIDERS: ADMIT Internal Medicine; ATTEND Internal Medicine
DX: U07.1 COVID-19 (principal); J96.01 Acute respiratory failure with hypoxia; N17.0 Acute kidney failure with tubular necrosis; I21.4 Non-ST elevation (NSTEMI) myocardial infarction; I16.1 Hypertensive emergency; Z68.41 Body mass index [BMI] 40.0-44.9, adult; K92.2 Gastrointestinal hemorrhage, unspecified; I50.9 Heart failure, unspecified; E87.5 Hyperkalemia; R74.01 Elevation of levels of liver transaminase levels; E66.9 Obesity, unspecified; Z66 Do not resuscitate; Z51.5 Encounter for palliative care; Z79.899 Other long term (current) drug therapy; I11.0 Hypertensive heart disease with heart failure; F41.9 Anxiety disorder, unspecified; J44.9 Chronic obstructive pulmonary disease, unspecified; I25.10 Atherosclerotic heart disease of native coronary artery without angina pectoris; E11.65 Type 2 diabetes mellitus with hyperglycemia; K21.9 Gastro-esophageal reflux disease without esophagitis; E78.5 Hyperlipidemia, unspecified; I48.0 Paroxysmal atrial fibrillation; G25.81 Restless legs syndrome; Z96.653 Presence of artificial knee joint, bilateral; E11.40 Type 2 diabetes mellitus with diabetic neuropathy, unspecified; Z95.5 Presence of coronary angioplasty implant and graft; Z87.891 Personal history of nicotine dependence; Z82.49 Family history of ischemic heart disease and other diseases of the circulatory system; Z91.030 Bee allergy status; Z91.041 Radiographic dye allergy status; Z79.82 Long term (current) use of aspirin